=== PATIENT | male | born 1955 | race Caucasian/White ===

== ENCOUNTER 2021-08-23 14:34 | Emergency (ER) | payer OTHER ==
[2021-08-23 15:32] LABS: HEMOGLOBIN 10.7 gm/dl (14.0-17.5); RED BLOOD COUNT 3.85 M/UL (4.20-5.50); WHITE BLOOD COUNT 6.2 K/UL (4.5-11.0)
== END 2021-08-23 16:53 | disposition home or self-care (01) ==
LOC: ER1 14:34
DX: R04.0 Epistaxis (principal); I12.9 Hypertensive chronic kidney disease with stage 1 through stage 4 chronic kidney disease, or unspecified chronic kidney disease; E11.22 Type 2 diabetes mellitus with diabetic chronic kidney disease; I25.10 Atherosclerotic heart disease of native coronary artery without angina pectoris; Z88.6 Allergy status to analgesic agent; N18.9 Chronic kidney disease, unspecified; Z51.81 Encounter for therapeutic drug level monitoring
CPT/HCPCS: 80053; 85025; 85610; 99283

== ENCOUNTER 2021-10-27 16:58 | Inpatient (IN) | payer OTHER ==
[~2021-10-27] VITALS: Ht 182.9 cm; Wt 81.6 kg
[2021-10-27 18:10] LABS: RED BLOOD COUNT 4.61 M/UL (4.20-5.50); WHITE BLOOD COUNT 14.7 K/UL (4.5-11.0)
[2021-10-27 18:33] LABS: BUN/CREATININE RATIO 19 (0-10)
[2021-10-27] MEDS ORDERED: ALLOPURINOL300 MG PO (23:29)
[2021-10-27] MEDS ORDERED: ASPIRIN EC81 MG PO (23:30)
[2021-10-27] MEDS ORDERED: DOCUSATE SODIU100 MG PO (23:30)
[2021-10-27] MEDS ORDERED: VITAMIN B-121000 MCG PO (23:31)
[2021-10-27] MEDS ORDERED: PREDNISONE10 MG PO (23:31)
[2021-10-27] MEDS ORDERED: ALL DAY ALLERGY10 M4 PO (23:32)
[2021-10-27] MEDS ORDERED: LEVOXYL75 MCG PO (23:32)
[2021-10-27] MEDS ORDERED: LISINOPRIL5 MG PO (23:32)
[2021-10-27] MEDS ORDERED: GLIPIZIDE XL2.5 MG PO (23:33)
[2021-10-27] MEDS ORDERED: LIPITOR40 MG PO (23:33)
[2021-10-27] MEDS ORDERED: LASIX20 MG PO (23:34)
[2021-10-27] MEDS ORDERED: AMLODIPINE BESYL5 MG PO (23:34)
[2021-10-27] MEDS ORDERED: CYCLOBENZAPRINE10 MG PO (23:34)
[2021-10-27] MEDS ORDERED: TAMSULOSIN HCL0.4 MG PO (23:35)
[2021-10-27] MEDS ORDERED: SODIUM BICARBO650 MG PO (23:35)
[2021-10-27] MEDS ORDERED: EVEROLIMUS PO (23:36)
[2021-10-27] MEDS ORDERED: LENVIMA1 EAC1 PO (23:36)
[2021-10-27] MEDS ORDERED: VITAMIN D350 MCG PO (23:37)
[2021-10-27] MEDS ORDERED: VITAMIN C250 MG PO (23:37)
[2021-10-27] MEDS ORDERED: FERROUS SULFAT324 MG PO (23:37)
[2021-10-28 05:12] LABS: HEMOGLOBIN 10.5 gm/dl (14.0-17.5); RED BLOOD COUNT 3.75 M/UL (4.20-5.50); WHITE BLOOD COUNT 6.4 K/UL (4.5-11.0)
[2021-10-28] MEDS ORDERED: TYLENOL 8 HOUR650 MG PO (11:51)
[2021-10-28] MEDS ORDERED: ROBAXIN 750 MG750 MG PO (11:52)
[2021-10-28] MEDS ORDERED: DIPHENOXYLATE-1 EACH PO (11:53)
[2021-10-28] MEDS ORDERED: PROCTOFOAM15 GM PR (11:54)
[2021-10-28 13:17] LABS: BODY FLUID SOURCE PLEURAL
[2021-10-28 13:18] LABS: MONONUCLEAR CELLS 3.5 (75-100); POLYMORPHONUCLEAR % 96.5 (0-25); RBC (AUTOMATED) 273900 (0-100000); WBC (AUTOMATED) 99110 (0-500)
[2021-10-28 13:39] LABS: LDH, BODY FLUID 3759 U/L; TOTAL PROTEIN, BODY FLUID 4.2 gm/dL
--- NOTE | 2021-10-28 22:48 | NUR ---
HR INCREASED TO 130'S 02 SAT 88% ON 3L N/C . CHEST TUBE FOUND TO BE CLAMPED. CHEST TUBE WAS THEN UNCLAMP AND RESULTED IN IMMEDIATE BLOODY DRAINAGE IN MODERATE AMOUNT. PATIENT EXPERIENCED INCREASE IN PAIN 10/[address] SOLORZANO WAS THEN NOTIFIED AND CLARIFICATION WAS OBTAINED REGARDING CLAMPING OF THE TUBE . HE WAS ALSO UPDATED TO DECREASE IN 02 SATS AND INCREASE IN HEART RATE. CHEST TUBE IS TO REMAIN UNCLAMPED AND MONITOR 02 SATS . AT THIS TIME 02 SATS HAS INCREASED TO 92 % , HEART RATE REMAINS AT 120'S . WILL CONTINUE TO MONITOR.
[2021-10-29 08:12] LABS: BUN/CREATININE RATIO 20 (0-10)
[2021-10-29 08:39] LABS: HEMOGLOBIN 12.7 gm/dl (14.0-17.5); RED BLOOD COUNT 4.66 M/UL (4.20-5.50); WHITE BLOOD COUNT 12.6 K/UL (4.5-11.0)
[2021-10-30 04:48] LABS: HEMOGLOBIN 11.5 gm/dl (14.0-17.5); WHITE BLOOD COUNT 12.4 K/UL (4.5-11.0)
[2021-10-30 04:49] LABS: RED BLOOD COUNT 4.15 M/UL (4.20-5.50)
[2021-10-30 12:15] LABS: ORGANISM ID Not indicated. (.); SPECIMEN SOURCE Urine (.); STREPTOCOCCUS PNEUMONIAE AG Negative (Negative)
[2021-10-31 02:24] LABS: RED BLOOD COUNT 3.65 M/UL (4.20-5.50); WHITE BLOOD COUNT 6.5 K/UL (4.5-11.0)
[2021-11-01 02:36] LABS: HEMOGLOBIN 9.6 gm/dl (14.0-17.5); RED BLOOD COUNT 3.53 M/UL (4.20-5.50)
[2021-11-01 02:37] LABS: WHITE BLOOD COUNT 4.8 K/UL (4.5-11.0)
== END 2021-11-02 11:43 | DRG 177 ==
LOC: ER1 16:58 → CDU 18:22 → PROG CARE 18:22 → CCU 18:22 → PROG CARE 10-30 13:23
PROVIDERS: Internal Medicine; Internal Medicine Pulmonary Disease; Student in an Organized Health Care Education/Training Program; ADMIT Internal Medicine
PROC: 3E03329 Introduction of Other Anti-infective into Peripheral Vein, Percutaneous Approach (ICD-10-PCS; principal; 2021-10-28)
PROC: 0W9B30Z Drainage of Left Pleural Cavity with Drainage Device, Percutaneous Approach (ICD-10-PCS; 2021-10-28)
PROC: BB4BZZZ Ultrasonography of Pleura (ICD-10-PCS; 2021-10-28)
DX: J86.0 Pyothorax with fistula (principal); A41.9 Sepsis, unspecified organism; J18.9 Pneumonia, unspecified organism; J96.01 Acute respiratory failure with hypoxia; R65.21 Severe sepsis with septic shock; J93.83 Other pneumothorax; N17.9 Acute kidney failure, unspecified; C78.02 Secondary malignant neoplasm of left lung; C78.01 Secondary malignant neoplasm of right lung; J94.8 Other specified pleural conditions; M06.9 Rheumatoid arthritis, unspecified; N18.30 Chronic kidney disease, stage 3 unspecified; I12.9 Hypertensive chronic kidney disease with stage 1 through stage 4 chronic kidney disease, or unspecified chronic kidney disease; E11.22 Type 2 diabetes mellitus with diabetic chronic kidney disease; E87.5 Hyperkalemia; Z85.53 Personal history of malignant neoplasm of renal pelvis; Z90.5 Acquired absence of kidney; Z79.01 Long term (current) use of anticoagulants; Z79.82 Long term (current) use of aspirin; Z87.891 Personal history of nicotine dependence; Z88.8 Allergy status to other drugs, medicaments and biological substances
CPT/HCPCS: 36415; 71045; 71250; 80048; 80053; 80202; 81001; 82150; 82550; 82553; 82962; 83036; 83540; 83550; 83605; 83615; 83735; 83880; 83986; 84100; 84132; 84157; 84484; 85025; 85027; 85610; 85652; 86140; 87040; 87070; 87077; 87081; 87086; 87186; 87205; 87278; 87899; 89051; 93005; 96374; 99285; J1650; J2185; J2270; J2370; J2543; J2704; J3370; J7030; J7070